=== PATIENT | female | born 1985 | race Asian ===

== ENCOUNTER 2020-09-20 20:17 | Emergency (ER) | payer OTHER ==
[~2020-09-20] VITALS: Ht 160 cm; Wt 65.8 kg
[2020-09-20 21:17] LABS: PLATELET COUNT 246 K/uL (152-353)
[2020-09-20 21:23] LABS: POTASSIUM 3.6 mmol/L (3.6-5.2)
[2020-09-20 22:25] VITALS: BP 112/76
== END 2020-09-20 22:25 | disposition home or self-care (01) ==
LOC: ED 20:17
PROVIDERS: Family Medicine
DX: N39.0 Urinary tract infection, site not specified (principal); R55 Syncope and collapse
CPT/HCPCS: 36415; 80053; 81000; 81025; 85027; 99283; J7040